=== PATIENT | female | born 1960 | race Caucasian/White ===

== ENCOUNTER 2018-07-22 10:28 | Emergency (ER) | payer BC ==
[2018-07-22 10:48] VITALS: RESP 18
[2018-07-22] MEDS ORDERED: guaiFENesin-Codeine 100-10mg/5ml Syrup (5 ml) UD PO ONE (10:55)
[2018-07-22 11:24] LABS: BASO # 0.02 K/mm3 (0.0-2.0); BASO % 0.4 % (0.0-3.0); EOS # 0.1 (0.0-0.7); EOS % 2.1 % (1.5-5.0); HEMOGLOBIN 12.4 g/dL (12.0-16.0); LYMPH # 0.9 (1.2-3.4); LYMPH % 18.1 % (22.0-35.0); MEAN CORPUSCULAR HEMOGLOBIN 26.4 pg (25.0-35.0); MEAN CORPUSCULAR HGB CONC 31.5 g/dl (31.0-37.0); MEAN PLATELET VOLUME 11.9 fl (7.0-11.0); MONO # 0.4 (0.1-0.6); RBC 4.69 10^6/uL (3.5-6.1); RED CELL DISTRIBUTION WIDTH 14.1 % (11.5-14.5); WHITE BLOOD COUNT 4.9 10^3/uL (4.5-11.0)
[2018-07-22] MEDS: Albuterol-Ipratrop 3 mg / 0.5 (3 ml) UD IH SCH ×2 (11:31→12:33)
[2018-07-22 11:32] LABS: ALB/GLOB RATIO 1.3 (1.1-1.8); ALBUMIN 4.2 g/dL (3.0-4.8); ALT/SGPT 40 U/L (7-56); AST/SGOT 23 U/L (14-36); BLOOD UREA NITROGEN 10 mg/dL (7-21); CALCIUM 9.3 mg/dL (8.4-10.5); GFR NON-AFRICAN AMERICAN > 60
[2018-07-22 11:37] LABS: VENOUS BLOOD GAS BASE EXCESS 2.2 mmol/L (0.0-2.0); VENOUS BLOOD GAS PO2 114 mm/Hg (30-55); VENOUS BLOOD PH 7.41 (7.32-7.43)
[2018-07-22 11:40] LABS: B-TYPE NATRIURETIC PEPTIDE 87.7 pg/mL (0-450)
--- NOTE | 2018-07-22 11:49 | ED PDOC ---
Arrival/HPI - General Chief Complaint: Cough, Cold, Congestion Historian: Patient - History of Present Illness Narrative History of Present Illness (Text): 07/22/18 11:46 58 year old female, with no significant past medical history, presents to the emergency department complaining of non-productive cough for 1 month. Patient reports trying multiple [id number] medications, however has had no relief. Also, patient had recently seen his PMD and was prescribed antibiotics, however symptom has still not gone away. Patient notes also experiencing some sinus pressure, subjective fever and chills, however denies any vomiting, or any other complaints at this time. Past Medical History - Provider Review Nursing Documentation Reviewed: Yes - Reproductive Menopause: Yes - Psychiatric Hx Substance Use: No - Suicidal Assessment Feels Threatened In Home Enviroment: No Family/Social History - Physician Review Nursing Documentation Reviewed: Yes Family/Social History: No Known Family HX Smoking Status: 0 Hx Alcohol Use: No Hx Substance Use: No Allergies/Home Meds Allergies/Adverse Reactions: Allergies No Known Allergies Allergy (Unverified 01/21/13 17:39) Review of Systems - Physician Review All systems were reviewed & negative as marked: Yes - Review of Systems Constitutional: Fevers (subjective), Night Sweats ENT: Other (some sinus pressure) Respiratory: Cough (non-productive) Gastrointestinal: absent: Vomiting Physical Exam Vital Signs Reviewed: Yes Vital Signs Temp Pulse Resp BP Pulse Ox 07/22/18 10:29 100.1 F H 104 H 18 142/87 98 Temperature: Febrile Blood Pressure: Normal Pulse: Tachycardic Respiratory Rate: Normal Appearance: Positive for: Well-Appearing, Non-Toxic, Comfortable Pain Distress: None Mental Status: Positive for: Alert and Oriented X 3 - Systems Exam Head: Present: Atraumatic, Normocephalic Pupils: Present: PERRL Extroacular Muscles: Present: EOMI Conjunctiva: Present: Normal Mouth: Present: Moist Mucous Membranes Neck: Present: Normal Range of Motion Respiratory/Chest: Present: Other (coarse breath sounds bilaterally). No: Wheezes, Rales, Rhonchi Cardiovascular: Present: Regular Rate and Rhythm, Normal S1, S2, Tachycardic. No: Murmurs Abdomen: No: Tenderness, Distention, Peritoneal Signs Back: Present: Normal Inspection Upper Extremity: Present: Normal Inspection. No: Cyanosis, Edema Lower Extremity: Present: Normal Inspection. No: Edema Neurological: Present: GCS=15, CN II-XII Intact, Speech Normal Skin: Present: Warm, Dry, Normal Color. No: Rashes Psychiatric: Present: Alert, Oriented x 3, Normal Insight, Normal Concentration Medical Decision Making ED Course and Treatment: 07/22/18 11:50 Impression: 58 year old female with non-productive cough, some sinus pressure, subjective fever, and chills. Plan: -- Chest X-ray -- Labs -- Venous Blood Gas -- Duonebs --Predisone -- Robitussin -- Reassess and disposition Progress Notes: 07/22/18 12:03 Labs reviewed with no leukocytosis noted and no infiltrates seen on CXR. Patient updated on results and advised to follow up with her PCP. She demonstrates understanding and will follow up. Scripts provided. Opportunity for questions given and answered. She is stable for discharge. - Lab Interpretations Lab Results: pO2 114 mm/Hg (30-55) H 07/22/18 11:30 VBG pH 7.41 (7.32-7.43) 07/22/18 11:30 VBG pCO2 43.0 (40-60) 07/22/18 11:30 VBG HCO3 27.3 mmol/l (21-28) 07/22/18 11:30 VBG Total CO2 28.6 mmol.L (22-28) H 07/22/18 11:30 VBG O2 Sat (Calc) 99.9 % (40-65) H 07/22/18 11:30 VBG Base Excess 2.2 mmol/L (0.0-2.0) H 07/22/18 11:30 VBG Potassium 4.0 mmol/L (3.6-5.2) 07/22/18 11:30 Sodium 136.0 mmol/L (132-148) 07/22/18 11:30 Chloride 105.0 mmol/L (98-107) 07/22/18 11:30 Glucose 88 mg/dl (65-105) 07/22/18 11:30 Lactate 0.8 mmol/L (0.7-2.1) 07/22/18 11:30 FiO2 21.0 % 07/22/18 11:30 NT-Pro-B Natriuret Pep 87.7 pg/mL (0-450) 07/22/18 10:55 Total Bilirubin 2.0 mg/dL (0.2-1.3) H 07/22/18 10:55 AST 23 U/L (14-36) 07/22/18 10:55 ALT 40 U/L (7-56) 07/22/18 10:55 Alkaline Phosphatase 76 U/L (38-126) 07/22/18 10:55 Total Protein 7.5 g/dL (5.8-8.3) 07/22/18 10:55 Albumin 4.2 g/dL (3.0-4.8) 07/22/18 10:55 Globulin 3.3 gm/dL 07/22/18 10:55 Albumin/Globulin Ratio 1.3 (1.1-1.8) 07/22/18 10:55 I have reviewed the lab results: Yes - RAD Interpretation Radiology Orders: 07/22/18 10:53 CHEST PORTABLE [RAD] Stat - Medication Orders Current Medication Orders: Discontinued Medications Albuterol/Ipratropium (Duoneb 3 Mg/0.5 Mg (3 Ml) Ud) 3 ml IH Q15M CANELO Stop: 07/22/18 11:31 Last Admin: 07/22/18 11:31 Dose: 3 ml Guaifenesin/Codeine Phosphate (Robitussin W/Codeine) 5 ml PO ONCE ONE Stop: 07/22/18 10:56 Last Admin: 07/22/18 11:31 Dose: 5 ml - Scribe Statement The provider has reviewed the documentation as recorded by the Chantelle Zimmer Provider Scribe Attestation: All medical record entries made by the Chantelle were at my direction and personally dictated by me. I have reviewed the chart and agree that the record accurately reflects my personal performance of the history, physical exam, medical decision making, and the department course for this patient. I have also personally directed, reviewed, and agree with the discharge instructions and disposition. Disposition/Present on Arrival - Present on Arrival Any Indicators Present on Arrival: No History of DVT/PE: No History of Uncontrolled Diabetes: No Urinary Catheter: No History of Decub. Ulcer: No History Surgical Site Infection Following: None - Disposition Have Diagnosis and Disposition been Completed?: Yes Diagnosis: Bronchitis Disposition: HOME/ ROUTINE Disposition Time: 12:09 Patient Plan: Discharge Patient Problems: Current Active Problems Problem Status Onset Bronchitis Acute Condition: IMPROVED Discharge Instructions (ExitCare): Acute Bronchitis, Adult (DC) Print Language: CROATIAN Additional Instructions: All medical record entries made by the Scribe were at my direction and personally dictated by me. I have reviewed the chart and agree that the record accurately reflects my personal performance of the history, physical exam, medical decision making, and the department course for this patient. I have also personally directed, reviewed, and agree with the discharge instructions and disposition. Please follow up with your PCP in 1 week Take your medications as prescribed Prescriptions: Albuterol HFA [Ventolin HFA 90 mcg/actuation (8 g)] 200 puff IH Q4H #2 puff Azithromycin [Z-Segundo] 250 mg PO DAILY #6 tab guaiFENesin/Codeine [Codeine/Guaifenesin 10 MG/5 Ml-100 MG/5 Ml 5] 5 ml PO Q4H #50 udc Methylprednisolone [Medrol Dose Pack (21 tabs)] 4 mg PO DAILY #21 mg Referrals: Mihaela Rojas MD [Medical Doctor] - Follow up with primary [facility] [place] [Outside] - Follow up with primary Forms: [facility] (Telugu), WORK NOTE
[2018-07-22 12:24] VITALS: BP 135/86; PULSE 92; O2SAT 100
[2018-07-22 13:14] VITALS: TEMP 98.9
--- NOTE | 2018-07-22 15:21 | RAD ---
Date of service: 07/22/2018 HISTORY: Cough COMPARISON: No prior. TECHNIQUE: 1 view obtained. FINDINGS: LUNGS: Mild peribronchial thickening. No focal consolidation PLEURA: No significant pleural effusion identified, no pneumothorax apparent. CARDIOVASCULAR: No aortic atherosclerotic calcification present. Normal cardiac size. No pulmonary vascular congestion. OSSEOUS STRUCTURES: No significant abnormalities. VISUALIZED UPPER ABDOMEN: Normal. OTHER FINDINGS: None. IMPRESSION: Mild peribronchial thickening. No focal consolidation
--- NOTE | 2018-07-22 19:31 | CARD ---
APPROVED REPORT Date of service: 07/22/2018 EKG Measurement Heart [id number] <Conclusion> Normal sinus rhythm Normal ECG
== END 2018-07-22 12:44 | disposition home or self-care (01) ==
LOC: ED 10:28
DX: J40 Bronchitis, not specified as acute or chronic (principal)